=== PATIENT | male | born 1960 | race Caucasian/White ===

== ENCOUNTER 2017-02-06 20:51 | Emergency (ER) | payer SELFPAY ==
[~2017-02-06] VITALS: Ht 188 cm; Wt 70.3 kg
[2017-02-06] MEDS ORDERED: fentaNYL PF VIAL 100 MCG/2 ML VIAL IV PRN (21:15)
[2017-02-06 21:20] LABS: BASO % 0 % (0-3); EOS % 0 % (0-3); HEMATOCRIT 42.5 % (39.0-53.0); HEMOGLOBIN 14.5 g/dL (13.0-17.5); LYMPH # 0.5 x10^3/uL (1.0-4.8); LYMPH % 4 % (24-48); MEAN CORPUSCULAR HEMOGLOBIN 33 pg (25-35); MEAN CORPUSCULAR HGB CONC 34 g/dL (31-37); MEAN CORPUSCULAR VOLUME 96 fL (79-100); MONO % 7 % (0-9); NEUT % 89 % (31-73); PLATELET COUNT 233 x10^3/uL (140-400); RED BLOOD COUNT 4.42 x10^6/uL (4.30-5.70); RED CELL DISTRIBUTION WIDTH 13.1 % (11.5-14.5); WHITE BLOOD COUNT 13.3 x10^3/uL (4.0-11.0)
[2017-02-06 21:35] LABS: CALCIUM 8.9 mg/dL (8.5-10.1); CREATININE 1.3 mg/dL (0.7-1.3); GFR 56.9; POTASSIUM 4.1 mmol/L (3.5-5.1)
[2017-02-06 22:03] LABS: PLT ESTIMATE ADEQUATE (ADEQUATE)
[2017-02-06] MEDS ORDERED: HYDR-2666 PO (22:06)
[2017-02-06] MEDS ORDERED: DIPHTH,PERTUSS(ACELL),TET TOX 0.5 ML DISP.SYRIN. VAX IM ONE ×2 (22:06→22:15)
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
[2017-02-06 22:10] VITALS: BP 146/84
--- NOTE | 2017-02-07 06:13 | EKG ---
[facility] [address] [place] [address] Test Date: 2017-02-06 Test Time: 21:00:23 Pat Name: NURYS GAMA Department: Room: Gender: M [employer]: : 1960 Requested By: Khang RAMIRES Order Number: [id number] Reading MD: Rai Stanley Measurements Intervals [place] Rate: 84 P: 63 WI: 130 QRS: 65 QRSD: 100 T: 27 QT: 362 QTc: 431 Interpretive Statements SINUS RHYTHM INCOMPLETE RIGHT BUNDLE BRANCH BLOCK QRS(T) CONTOUR ABNORMALITY CONSIDER ANTEROLATERAL MYOCARDIAL DAMAGE RI6.01 Unconfirmed report No previous ECG available for comparison Electronically Signed On 02-12-2017 9:25:00 CDT by Rai Stanley
--- NOTE | 2017-02-07 07:44 | RAD ---
Exam: PA and lateral chest radiograph History: Dyspnea and left-sided chest pain beginning today, cough. Comparison: None. Findings: Cardiomediastinal silhouette is within normal limits for size. Patchy density seen in the left lower lobe. No pleural effusion is seen. Impression: Patchy density in the left lower lobe, could be atelectasis versus developing airspace disease.
== END 2017-02-06 22:18 | disposition home or self-care (01) ==
LOC: ER 20:51
DX: R07.89 Other chest pain (principal); S40.212A Abrasion of left shoulder, initial encounter; S50.312A Abrasion of left elbow, initial encounter; R05 Cough; F10.10 Alcohol abuse, uncomplicated; W05.1XXA Fall from non-moving nonmotorized scooter, initial encounter; Y93.89 Activity, other specified; Y99.8 Other external cause status; Y92.89 Other specified places as the place of occurrence of the external cause
CPT/HCPCS: 36415; 71020; 80048; 85007; 85027; 90471; 90715; 93005; 96374; 99285; J3010